=== PATIENT | female | born 1960 | race Caucasian/White ===

== ENCOUNTER 2023-11-28 19:02 | Emergency (ER) | payer OTHER, MEDICAID, SELFPAY ==
--- NOTE | ~2023-11-28 | XR_ITS ---
Left foot Technique: AP, oblique, and lateral views were obtained. Clinical History: First a laceration Findings: There is an acute transverse fracture through the midportion of the distal phalanx of the g reat toe, mildly displaced. No intra-articular extension. No other fracture or dislocation seen. Join t spaces are preserved without erosive or degenerative change. Soft tissues are unremarkable. Impression: Acute transverse fracture of the distal phalanx of the great toe, as detailed above. Reviewed, dictated and finalized at location M. Impression: Acute transverse fracture of the distal phalanx of the great toe, as detailed neymar weems.
[2023-11-28 19:02] VITALS: BP 145/79; PULSE 83; RESP 16; TEMP 37.1; O2SAT 97
--- NOTE | 2023-11-28 20:10 | ED.LOWEXIN ---
HPI - Extremity Injury (Lower) General Chief Complaint: Extremity Injury, Lower Stated Complaint: Toe laceration Time Seen by Provider: 11/28/23 19:20 History of Present Illness HPI Narrative: 63-year-old female presents to emergency department via EMS for a left great toe laceration. Patient was at a local [place] working when she tripped over a barricade and cut the plantar aspect over left great toe. She was wearing sandals and believes she may have slipped out of her sandals. There are no puncture wounds noted to the sandals. Bleeding controlled. Last Tdap around 5-10 years ago. Related Data Allergies Allergy/AdvReac Type Severity Reaction Status Date / Time prochlorperazine Allergy Mild Other Verified 02/05/19 19:50 Review of Systems Review of Systems: All systems reviewed & are unremarkable except as noted in HPI and below Exam Narrative: GENERAL: Well-appearing, well-nourished, and in no acute distress. HEAD: Normocephalic, atraumatic. NECK: Supple. CHEST: Clear to auscultation. No respiratory distress. HEART: Regular rate and rhythm. No murmur heard. Normal peripheral pulses. EXTREMITIES: Normal range of motion. No edema. SKIN: 2cm laceration to the plantar aspect of the L great toe. Bleeding Controlled. No deep structures or foreign bodies visualized. Cap refill less than 2. Sensation intact. Full active and passive range of motion of toe. NEURO: No focal deficits. Alert and oriented x3 Course Vital Signs Vital signs: Vital Signs Temperature 98.7 F 11/28/23 19:02 Pulse Rate 83 11/28/23 19:02 Respiratory Rate 16 11/28/23 19:02 Blood Pressure 145/79 H 11/28/23 19:02 Pulse Oximetry 97 11/28/23 19:02 Oxygen Delivery Room Air 11/28/23 19:02 Temperature 98.7 F 11/28/23 19:02 Pulse Rate 94 11/28/23 22:50 Respiratory Rate 18 11/28/23 22:50 Blood Pressure 144/87 H 11/28/23 22:50 Pulse Oximetry 100 11/28/23 22:50 Oxygen Delivery Room Air 11/28/23 19:02 MDM - Extremity Injury (Lower) MDM Narrative Medical decision making narrative: 63-year-old female presents to the emergency department for a laceration to the plantar aspect of her left great toe that occurred prior to arrival. Triage vitals stable. Exam is significant for the above. Tdap updated. X-ray of the foot shows acute transverse fracture of the distal phalanx of the great toe. Attempted to apply digital block, however patient would not tolerate due to pain. LET was applied to the area and she was given IV Toradol, she received IV morphine EN route via EMS. Again attempted to perform a digital block which she would not tolerate this due to pain. She is requesting that I do not continue with laceration repair. I discussed concerns given an open fracture including infection, osteomyelitis, loss of her toe or foot. She verbalizes these risks and persistently asked for me to not continue further repair. Laceration is irrigated extensively with normal saline. Steri-Strips and dressing applied. She was given a postop shoe and crutches and provided follow-up with Podiatry. She was started on Keflex empirically,first dose provided in the ED. strict ED return precautions discussed. She is agreeable to plan verbalized understanding. she left the department against medical advice in stable condition. Discharge Plan Discharge Clinical Impression: Open fracture of great toe, Laceration Patient Disposition: Home, Self-Care Condition: Stable Instructions: Antibiotic Form, Laceration (DC), Toe Fracture (ED) Additional Instructions: you were evaluated in the emergency department for a toe injury. You have a 2 cm laceration in the x-ray of your toe shows a fracture to the distal phalanx. This is considered an open fracture. We discussed the importance of applying stitches to your toe for proper wound healing. You declined stitches. We discussed risks of not closing a properly including infecti
[2023-11-28] MEDS: TETANUS,DIPHTHERIA,AC PERTUSSIS ADULT (0.5 ML) BOOSTRIX IM (20:23)
[2023-11-28] MEDS: LIDOCAINE, EPINEPHRINE, TETRACAINE VISCOUS SOLN 3 ML TOPICAL (21:20)
[2023-11-28] MEDS: KETOROLAC 15 MG/ML VIAL (*BKC) IV PUSH (21:29)
[2023-11-28] MEDS: CEPHALEXIN 500 MG CAPSULE PO (22:41)
[2023-11-28 22:50] VITALS: BP 144/87; PULSE 94; RESP 18; O2SAT 100
--- NOTE | 2023-11-28 23:01 | PC.NURSE ---
patient refused to let provider applied sutures to LEFT big toe. patient was provided pain medication through their IV and L.E.T. Provider attempted to go into the room 3 times to do sutures and the patient states, will need to be knocked out . provider and RN educated patient numerous times about the risk of infection, sepsis, or even if the wound goes untreated. the patient states they will not be able to tolerate getting the numbing shots ans sutures, so they would rather go. provider applied steri-strips, non-adherent dressing, gauze, and post op shoe to the affected area. patient was educated numerous times about the risks of leaving AMA, but till chose to. patient ambulates well with crutches. symptoms warranting a return to the ED were discussed.
== END 2023-11-28 23:08 | disposition home or self-care (01) ==
PROVIDERS: Emergency Provider Physician Assistant
DX: S92.402B Displaced unspecified fracture of left great toe, initial encounter for open fracture (principal); W01.0XXA Fall on same level from slipping, tripping and stumbling without subsequent striking against object, initial encounter; Z23 Encounter for immunization
CPT/HCPCS: 73630; 90471; 90715; 96374; 99284; A9270; J1885